=== PATIENT | female | born 1940 | race Caucasian/White ===

== ENCOUNTER 2018-02-12 01:53 | Inpatient (IN) | payer OTHER ==
[~2018-02-12] VITALS: Ht 160 cm; Wt 72.1 kg
[~2018-02-12 01:53] MED LIST: ACIDOPHILUS1 EAC1 PO; CIPRO500 MG PO; EVISTA60 MG; FLAGYL500MG PO; LOSARTAN-HCTZ1 EAC1; PROTONIX40 MG PO; RELAGESIC 5001 EACH PO; SYNTHROID50 MCG
[2018-02-15] MEDS ORDERED: FLAGYL500MG PO (19:03)
[2018-02-15] MEDS ORDERED: CIPRO500 MG PO (19:03)
[2018-02-15] MEDS ORDERED: INTESTINEX680 M1 PO (19:04)
== END 2018-02-15 19:15 | disposition home or self-care (01) | DRG 392 ==
LOC: ER 01:53 → MEDJ 14:33 → SEC-K 14:33 → MEDJ 15:35
PROC: BW20YZZ Computerized Tomography (CT Scan) of Abdomen using Other Contrast (ICD-10-PCS; principal; 2018-02-12)
DX: K57.32 Diverticulitis of large intestine without perforation or abscess without bleeding (principal); G89.18 Other acute postprocedural pain; I10 Essential (primary) hypertension; E07.89 Other specified disorders of thyroid; Z88.0 Allergy status to penicillin

== ENCOUNTER 2018-03-13 17:24 | Emergency (ER) | payer OTHER ==
[~2018-03-13] VITALS: Ht 160 cm; Wt 68.0 kg
[~2018-03-13 17:24] MED LIST changes: +INTESTINEX680 M1 PO
== END 2018-03-14 10:46 | disposition home or self-care (01) ==
LOC: ER 17:24
DX: I80.8 Phlebitis and thrombophlebitis of other sites (principal)

== ENCOUNTER 2021-04-27 23:54 | Emergency (ER) | payer OTHER ==
[~2021-04-27] VITALS: Ht 160 cm; Wt 72.1 kg
[2021-04-28] MEDS ORDERED: LIPITOR40 M1 (00:31)
[2021-04-28] MEDS ORDERED: ZYRTEC10 MG PO (13:05)
[2021-04-28] MEDS ORDERED: PEPCID AC20 MG PO (13:05)
[2021-04-28] MEDS ORDERED: INTESTINEX680 M1 PO (13:05)
[2021-04-28] MEDS ORDERED: LEVOFLOXACIN500 MG PO (13:05)
== END 2021-04-28 13:21 | disposition home or self-care (01) ==
LOC: ER 23:54
DX: K57.92 Diverticulitis of intestine, part unspecified, without perforation or abscess without bleeding (principal); R10.32 Left lower quadrant pain